=== PATIENT | female | born 1960 | race Caucasian/White ===

== ENCOUNTER → 2017-05-24 | Outpatient (CLI) | payer OTHER ==
--- NOTE | 2017-05-28 08:31 | MM ---
Reason for exam: screening (asymptomatic). Last mammogram was performed 1 year ago. History: Patient is postmenopausal and has history of other cancer at age 54. Physical Findings: A clinical breast exam by your physician is recommended on an annual basis and results should be correlated with mammographic findings. MG Screening Mammo w CAD Bilateral CC and MLO view(s) were taken. Prior study comparison: May 23, 2016, bilateral MG diagnostic mammo w CAD PATITO. May 05, 2015, right breast MG work up mamm w CAD RT. The breast tissue is heterogeneously dense. This may lower the sensitivity of mammography. Finding: There are typically benign coarse, diffuse/scattered calcifications in both breasts. No significant changes in finding since May 23, 2016 and May 05, 2015. ASSESSMENT: Benign, BI-RAD 2 RECOMMENDATION: Routine screening mammogram of both breasts in 1 year.
== END | disposition home or self-care (01) ==
LOC: RADMAMWWP 10:05
PROVIDERS: ATTEND Obstetrics & Gynecology
DX: Z12.31 Encounter for screening mammogram for malignant neoplasm of breast (principal)

== ENCOUNTER → 2018-08-21 | Outpatient (CLI) | payer OTHER ==
--- NOTE | 2018-08-24 12:55 | MM ---
Reason for exam: screening (asymptomatic). Last mammogram was performed 1 year and 3 months ago. History: Patient is postmenopausal and has history of other cancer at age 54. MG Screening Mammo w CAD Bilateral CC, MLO, and XCCL view(s) were taken. Prior study comparison: May 24, 2017, bilateral MG screening mammo w CAD. May 23, 2016, bilateral MG diagnostic mammo w CAD PATITO. There are scattered fibroglandular densities. Scattered benign oil cysts and vascular calcifications, increasing on the left. No significant changes when compared with prior studies. ASSESSMENT: Benign, BI-RAD 2 RECOMMENDATION: Routine screening mammogram of both breasts in 1 year.
== END ==
LOC: RADMAMWWP 08:59
PROVIDERS: ATTEND Obstetrics & Gynecology
DX: Z12.31 Encounter for screening mammogram for malignant neoplasm of breast (principal)
CPT/HCPCS: 77067

== ENCOUNTER → 2019-10-20 | Outpatient (CLI) | payer BC ==
--- NOTE | 2019-10-20 20:07 | BD ---
EXAMINATION TYPE: Axial Bone Density DATE OF EXAM: 10/20/2019 COMPARISON: 04.29.2015 DEXA bone scan. CLINICAL HISTORY: 59 YR OLD FEMALE....ICD-10 CODE: M85.9 DISORDER OF BONE DENSITY Height: 63 Weight: 189 FRAX RISK QUESTIONS: Secondary Osteoporosis: YES 1. Type 1 Diabetes: YES Current Tobacco Use: YES RISK FACTORS HISTORY OF: Postmenopausal woman: YES, ABOUT AGE 52 YRS OLD Lost more than 2 inches in height since high school: YES Hyperparathyroidism: NO Adrenal Insufficiency: NO MEDICATIONS: Additional Medications: CALCIUM, VIT D, BP MEDS, ANTIDEPRESSANTS IN THE PAST, INSULIN AND ORAL DIABE TIC MEDS, REFLUX MEDS, STATIN FOR CHOLESTEROL, Additional History: DIABETIC, REFLUX, CHOLESTEROL, HYPERTENSION EXAM MEASUREMENTS: Bone mineral densitometry was performed using the [employer]. Bone mineral density as measured about the Lumbar spine is: ----- L1-L4(G/cm2): 1.223 T Score Values are as follows: ----- L1: 0.3 ----- L2: 0.2 ----- L3: 0.5 ----- L4: 0.2 ----- L1-L4: 0.4 Bone mineral density has: Increased 6.9% since study of: 04.29.2015 Bone mineral density about the R hip (g/cm2): 0.972 Bone mineral density about the L hip (g/cm2): 1.062 T Score values are as follows: -----R Neck: -0.9 -----L Neck: -0.4 -----R Total: -0.3 -----L Total: 0.4 Bone mineral density has: Decreased -1.8% since study of: 04.29.2015 FRAX%s: THERE IS A 6.4% CHANCE FOR A MAJOR OSTEOPOROTIC FX AND A 0.5% FOR HIP....PROBABILITY FOR FX IN 10 YRS TIME IMPRESSION: Normal (Values between +1 and -1 indicate normal bone mass). Consider repeating this study in 5 year s or sooner if there is some new clinical indication. NOTE: T-SCORE=SD OF THE YOUNG ADULT MEAN.
--- NOTE | 2019-10-21 10:10 | MM ---
Reason for exam: screening (asymptomatic). Last mammogram was performed 1 year and 2 months ago. History: Patient is postmenopausal and has history of other cancer at age 54. Physical Findings: A clinical breast exam by your physician is recommended on an annual basis and results should be correlated with mammographic findings. MG Screening Mammo w CAD Bilateral CC and MLO view(s) were taken. Prior study comparison: August 21, 2018, bilateral MG screening mammo w CAD. May 24, 2017, bilateral MG screening mammo w CAD. The breast tissue is heterogeneously dense. This may lower the sensitivity of mammography. There are benign appearing round vascular calcifications bilaterally. There is chronic nodularity in the right breast. There is no discrete abnormality. ASSESSMENT: Benign, BI-RAD 2 RECOMMENDATION: Routine screening mammogram of both breasts in 1 year.
== END | disposition home or self-care (01) ==
LOC: RADMAMWWP 14:51
PROVIDERS: ATTEND Internal Medicine
DX: Z12.31 Encounter for screening mammogram for malignant neoplasm of breast (principal); M85.9 Disorder of bone density and structure, unspecified
CPT/HCPCS: 77067; 77080

== ENCOUNTER → 2020-08-17 | Outpatient (CLI) | payer BC ==
--- NOTE | 2020-08-17 16:07 | US ---
EXAMINATION TYPE: US carotid duplex BILAT DATE OF EXAM: 08/17/2020 COMPARISON: NONE CLINICAL HISTORY: 59-year-old female I65.23 Occlusion and stenosis of bilateral carotid. Pt states h/ o diabetes, vertigo TECHNIQUE: Carotid duplex ultrasound examination. Indirect Doppler criteria was utilized. FINDINGS: EXAM MEASUREMENTS: RIGHT: Peak Systolic Velocity (PSV) cm/sec ----- Right CCA: 79.9 ----- Right ICA: 136.6 ----- Right ECA: 178.6 ICA/CCA ratio: 1.7 RIGHT: End Diastole cm/sec ----- Right CCA: 22.3 ----- Right ICA: 47.8 ----- Right ECA: 13.0 LEFT: Peak Systolic Velocity (PSV) cm/sec ----- Left CCA: 74.3 ----- Left ICA: 118.9 ----- Left ECA: 324.7 ICA/CCA ratio: 1.6 LEFT: End Diastole cm/sec ----- Left CCA: 20.4 ----- Left ICA: 39.7 ----- Left ECA: 48.9 VERTEBRALS (direction of flow): Right Vertebral: Antegrade Left Vertebral: Antegrade Rhythm: Normal Construction Safety Consultant notes:Mildly elevated velocities right ICA and ECA/ Significant elevated velocities le ft ECA IMPRESSION: 1. Mildly elevated velocities within the proximal right ICA could reflect a moderate, 50-69%, stenosi s. 2. Significantly elevated velocities in the left ECA suggests a possible severe stenosis. No hemodyna mically significant ICA stenosis on the left. Criteria for Assigning % of Stenosis / Diameter reduction (Estimation based on the indirect measurements of the internal carotid artery velocities (ICA PSV). 1. Normal (no stenosis)=ICA PSV < 125 cm/s: ratio < 2.0: ICA EDV<40 cm/s. 2. Less than 50% stenosis=ICA PSV < 125 cm/s: ratio < 2.0: ICA EDV<40 cm/s. 3. 50 to 69% stenosis=ICA PSV of 125 to 230 cm/s: ration 2.0 ? 4.0: ICA EDV 40-100 cm/s. 4. Greater than 70% stenosis to near occlusion= ICA PSV > 230 cm/s: ratio > 4.0: ICA EDV > 100 cm/s. 5. Near occlusion= ICA PSV velocities may be low or undetectable: variable ratio and ICA EDV. 6. Total occlusion=unable to detect flow.
== END | disposition home or self-care (01) ==
LOC: RADUSWWP 15:24
PROVIDERS: ATTEND Internal Medicine
DX: I65.21 Occlusion and stenosis of right carotid artery (principal); R93.89 Abnormal findings on diagnostic imaging of other specified body structures
CPT/HCPCS: 93880

== ENCOUNTER → 2020-09-06 | Outpatient (CLI) | payer BC ==
--- NOTE | 2020-09-07 05:18 | CT ---
EXAMINATION TYPE: CT angio neck DATE OF EXAM: 09/06/2020 COMPARISON: None HISTORY: Carotid stenosis. CT DLP: 376.6 mGycm Automated exposure control for dose reduction was used. CONTRAST: Performed with IV Contrast, patient injected with 65ml mL of Isovue 370. Images were obtained from the aortic arch to the [place] with IV contrast and 3-D post proce ssed images. There is normal branching pattern of the great vessels on the aortic arch. There is bilateral arteria l flow in the subclavian arteries. There is no mediastinal adenopathy. There is arterial flow in the common internal and external carotid arteries bilaterally. There is some mild plaque formation at the carotid artery bifurcations and less than 20% stenosis. There is no evidence of carotid or vertebral artery aneurysm or dissection. There is arterial flow in both vertebral arteries. There is arterial flow in the vertebrobasilar artery system. IMPRESSION: There is some mild plaque formation and less than 20% stenosis at the origins of both internal caroti d arteries. No evidence of hemodynamic stenosis.
== END | disposition home or self-care (01) ==
LOC: RADCTMAIN 16:52
PROVIDERS: ATTEND Internal Medicine
DX: I65.23 Occlusion and stenosis of bilateral carotid arteries (principal)
CPT/HCPCS: 82565; 84520; 70498; 36415; Q9967

== ENCOUNTER → 2020-12-23 | Outpatient (CLI) | payer BC ==
--- NOTE | 2020-12-23 15:32 | US ---
EXAMINATION TYPE: US kidneys/renal and bladder DATE OF EXAM: 12/23/2020 COMPARISON: 11/08/2011 CLINICAL HISTORY: N18.31 Chronic Kidney Disease stage 3a. Back pain EXAM MEASUREMENTS: Right Kidney: 9.2 x 5.1 x 4.3 cm Left Kidney: 10.1 x 5.2 x 5.5 cm Right Kidney: No hydronephrosis or renal calculi seen Left Kidney: No hydronephrosis or renal calculi seen Bladder: wnl Bilateral Jets seen: no IMPRESSION: No hydronephrosis or renal calculi. Ureteral jets are not visualized.
== END | disposition home or self-care (01) ==
LOC: RADUSWWP 09:58
PROVIDERS: ATTEND Internal Medicine
DX: N18.31 Chronic kidney disease, stage 3a (principal)
CPT/HCPCS: 76770

== ENCOUNTER → 2021-10-07 | Outpatient (CLI) | payer BC ==
--- NOTE | 2021-10-07 10:33 | P.STRESS ---
- Stress Test Note Stress Test Results/Findings: Exam Performed: NM stress cardiolite complete Exam Date: 10/07/21 Reason for Exam: CAD Height: 5 ft 4 in Weight: 185 kg Protocol: CARDIOLITE NITISH Stage: 2 Duration of Exercise: 6:25 Resting Heart Rate: 80 Resting Blood Pressure: 141/65 Maximum Achieved Heart Rate: 146 Maximum Achieved Blood Pressure: 168/51 85% PMHR: 134 100% PMHR: 158 METS: 7.1 Technologist Comment: Stress Test Results/Findings: This is a 61-year-old female with history of hypertension, diabetes, smoking history and family history being evaluated for cardiac status. Stress data: Baseline EKG showed sinus rhythm with normal ME interval and QRS duration. Blood pressure at rest is 140/65 with pulse rate of 80. Patient walked on the Nitish protocol for 6 minutes and 25 seconds achieving a maximal rate of 146 with a blood pressure 168/51. EKGs taken during and after exercise showed mild J-point depression with upsloping ST segments. Patient did not experience any chest pain. No arrhythmias were noted. Final impression: #1. Borderline ST-T abnormalities which are not quite diagnostic for ischemia #2. Patient did not experience any chest pain. 3. No arrhythmias were noted. #4. Report on the nuclear images, which will be more pertinent, will begin with the radiologist
--- NOTE | 2021-10-07 11:16 | NM ---
EXAMINATION TYPE: NM stress cardiolite complete DATE OF EXAM: 10/07/2021 COMPARISON: NONE HISTORY: precordial chest pain and abnormal EKG. TECHNIQUE: After the intravenous administration of 9.6 mCi Tc 99m Sestamibi - Rest images obtained 5 0 minutes post injection. The patient exercised using a NITISH protocol and 1 minute prior to peak e xercise was injected with 24.1 mCi Tc 99m Sestamibi - Stress images obtained 10 minutes post injectio n. FINDINGS: Targeted heart rate was achieved during performance of the study. Review of stress and rest SPECT jeannine ges demonstrates no distinct perfusion abnormality. Gated analysis shows normal wall motion with an estimated left ventricular ejection fraction of 77 %. IMPRESSION: No scintigraphic evidence for reversible ischemia
== END | disposition home or self-care (01) ==
LOC: RADNMMAIN 07:45
PROVIDERS: ATTEND Internal Medicine
DX: R94.39 Abnormal result of other cardiovascular function study (principal)
CPT/HCPCS: 93017; 78452; A9500

== ENCOUNTER → 2022-07-13 | Outpatient (CLI) | payer BC ==
--- NOTE | 2022-07-13 08:31 | CTL ---
EXAMINATION TYPE: CT Low Dose Lung DATE OF EXAM ORDERED: 07/13/2022 COMPARISON: None HISTORY: . Low Dose CT Lung Screening CT DLP: 133.[address] CTDI: 3.80 mGy IV CONTRAST USED: None. SCREENING VISIT: First visit COMPARISON: None. TECHNIQUE: Low dose computed tomography scan was performed through the chest at 1 millimeter thick se ctions and reconstructed images in the coronal plane at [address] DIAGNOSTIC QUALITY: Satisfactory FINDINGS: LUNG NODULES: Solid nodule measuring 5.5 mm right apical region image 35. Calcified granuloma right u pper lobe measuring 1.2 cm image 88. LUNGS: COPD: Severity: Mild Fibrosis: Severity:None Lymph nodes: None Other findings: None RIGHT PLEURAL SPACE: Effusion: None Calcification: None Thickening: None Pneumothorax: None LEFT PLEURAL SPACE: Effusion: None Calcification: None Thickening: None Pneumothorax: None HEART: Heart Size: Mildly enlarged. Dense mitral annular calcifications noted. Coronary calcification: Mild Pericardial effusion: None OTHER FINDINGS: Upper abdomen: No significant abnormality Bony thorax: Degenerative changes Supraclavicular region: No significant abnormalityOther: No significant abnormalityI IMPRESSION: Right upper lobe nodularity is noted. FOLLOW UP CT CHEST RECOMMENDATION: Follow-up screening in one year CT LUNG RAD: LUNG RAD CATEGORY 2 benign appearance or behavior
== END | disposition home or self-care (01) ==
LOC: RADCTMAIN 07:51
PROVIDERS: ATTEND Internal Medicine
DX: Z12.31 Encounter for screening mammogram for malignant neoplasm of breast (principal); R91.8 Other nonspecific abnormal finding of lung field; Z87.891 Personal history of nicotine dependence
CPT/HCPCS: 71271

== ENCOUNTER → 2023-08-17 | Outpatient (CLI) | payer BC ==
--- NOTE | 2023-08-17 16:17 | CTL ---
EXAMINATION TYPE: CT Low Dose Lung DATE OF EXAM ORDERED: 08/17/2023 HISTORY: Lung cancer screening CT DLP: 100.[address] CTDI: 2.4 mGy Automated exposure control for dose reduction was used. COMPARISON: 07/13/2022 TECHNIQUE: Low dose computed tomography scan was performed through the chest at 1 mm thick sections a nd reconstructed images in multiple planes at 1 mm and [address] DIAGNOSTIC QUALITY: Satisfactory FINDINGS: The 2 right upper lobe pulmonary nodules are again seen and are stable. There is a stable subpleural parenchymal nodule in the left lingula as well. No new or suspicious lung mass or nodule is seen. The great vessels the chest are normal is no mediastinal, hilar or axillary adenopathy. There is no pleural effusion, pleural thickening or pneumothorax. There is scanning through the upper abdomen reveals no gross abnormality. No focal destructive osseou s lesions are seen. IMPRESSION: 1. Lung RADS category 2 benign findings as described above. Continue routine screening at yearly inte rvals. 2. No acute cardiopulmonary disease.
== END | disposition home or self-care (01) ==
LOC: RADCTMAIN 15:05
PROVIDERS: ATTEND Internal Medicine
DX: Z12.2 Encounter for screening for malignant neoplasm of respiratory organs (principal); R91.1 Solitary pulmonary nodule; F17.210 Nicotine dependence, cigarettes, uncomplicated
CPT/HCPCS: 71271

== ENCOUNTER → 2023-12-04 | Outpatient (CLI) | payer BC ==
--- NOTE | 2023-12-05 07:08 | CA ---
Transthoracic Echo Report Name: Carmella Villegas Age: 63 Gender: F : 1960 Exam Date: 12/04/2023 14:19 Exam Location: [facility] Ht (in): 64 Wt (lb): 182 Ordering Physician: Miguel Ko MD Attending/Referring Phys: Miguel Ko MD Senior Care Specialist Diane Levy RDCS Procedure CPT: Indications: I34.0 NONRHEUMATIC MITRAL (VALVE) INSUFFICIENCY Cardiac Hx: Technical Quality: Good Contrast 1: Total Dose (mL): Contrast 2: Total Dose (mL): MEASUREMENTS (Male / Female) Normal Values 2D ECHO LV Diastolic Diameter PLAX 4.7 cm 4.2 - 5.9 / 3.9 - 5.3 cm LV Systolic Diameter PLAX 2.7 cm IVS Diastolic Thickness 1.0 cm 0.6 - 1.0 / 0.6 - 0.9 cm LVPW Diastolic Thickness 1.1 cm 0.6 - 1.0 / 0.6 - 0.9 cm LV Relative Wall Thickness 0.5 RV Internal Dim ED PLAX 3.1 cm LA Systolic Diameter LX 4.3 cm 3.0 - 4.0 / 2.7 - 3.8 cm LV Diastolic Volume MOD 4C 86.4 cm??? LV Systolic Volume MOD 4C 41.4 cm??? LV Ejection Fraction MOD 4C 52.1 % LV Cardiac Index MOD 4C 1471.6 cm???/min???m??? LV Diastolic Length 4C 7.6 cm LV Systolic Length 4C 6.0 cm LV Diastolic Volume MOD 2C 48.2 cm??? LV Systolic Volume MOD 2C 14.1 cm??? LV Ejection Fraction MOD 2C 70.7 % LV Cardiac Index MOD 2C 1113.4 cm???/min???m??? LV Diastolic Length 2C 6.0 cm LV Systolic Length 2C 4.9 cm LA Volume 66.2 cm??? 18 - 58 / 22 - 52 cm??? LA Volume Index 33.8 cm???/m??? 16 - 28 cm???/m??? M-MODE Aortic Root Diameter MM 3.1 cm MV E Point Septal Separation 0.8 cm AV Cusp Separation MM 1.9 cm DOPPLER AV Peak Velocity 137.1 cm/s AV Peak Gradient 7.5 mmHg MV Peak Velocity 167.2 cm/s MV Peak Gradient 11.2 mmHg MV Mean Velocity 87.0 cm/s MV Mean Gradient 3.8 mmHg MV Velocity Time Integral 58.6 cm MV Area PHT 1.9 cm??? Mitral E Point Velocity 114.9 cm/s Mitral A Point Velocity 135.4 cm/s Mitral E to A Ratio 0.8 MV Deceleration Time 405.3 ms FINDINGS Left Ventricle Left ventricular ejection fraction is estimated at 60-65 %. Left ventricular cavity size normal. Mildly increased septal wall thickness. Mildly increased posterior wall thickness. No obvious regional wall motion abnormalities. Right Ventricle Normal right ventricular size and function. Unable to estimate the right ventricular systolic pressure. Right Atrium Normal right atrial size. Left Atrium Mildly increased left atrial diameter. Mildly increased left atrial volume. Mildly increased left atrial area. Mitral Valve Moderate thickening/calcification of the anterior mitral valve leaflet. Moderate thickening/calcification of the posterior mitral valve leaflet. Moderate mitral annular calcification. Mild mitral regurgitation. Minimal mitral stenosis. Aortic Valve Trileaflet aortic valve. Aortic valve sclerosis. No aortic valve stenosis or regurgitation. Tricuspid Valve Structurally normal tricuspid valve. No tricuspid stenosis, regurgitation or prolapse. Pulmonic Valve Structurally normal pulmonic valve. Trace pulmonic regurgitation. Pericardium No pericardial effusion. No pleural effusion. Aorta Normal size aortic root and proximal ascending aorta. CONCLUSIONS Normal LV systolic function Moderate mitral annular calcification and mitral leaflet thickening with mild mitral stenosis Aortic sclerosis with no stenosis or regurgitation No pericardial effusion Previewed by: Dr. Bishop Hicks MD (Electronically Signed) Final Date: 05 Dec 2023 07:07
== END | disposition home or self-care (01) ==
LOC: RADECHMAIN 14:02
PROVIDERS: ATTEND Internal Medicine
DX: I34.81 Nonrheumatic mitral (valve) annulus calcification (principal); I70.0 Atherosclerosis of aorta
CPT/HCPCS: 93306

== ENCOUNTER → 2024-03-18 | Outpatient (CLI) | payer BC | END | disposition home or self-care (01) | LOC: LABPRL 09:00 | PROVIDERS: ATTEND Internal Medicine | CPT/HCPCS: 80053; 80061; 82043; 82306; 82570; 83036; 84443; 85025 ==

== ENCOUNTER → 2024-06-26 | Outpatient (CLI) | payer BC ==
--- NOTE | 2024-06-27 09:22 | MM ---
Reason for Exam: Screening (asymptomatic). Last mammogram was performed 4 year(s) and 8 month(s) ago. Patient History: Menarche at age 9. First Full-Term at age 21. Postmenopausal. Other cancer, age 54. Risk Values: Giovanna 5 year model risk: 1.6%. NCI Lifetime model risk: 6.4%. Prior Study Comparison: 05/24/2017 Bilateral Screening Mammogram, [facility]. 08/21/2018 Bilateral Screening Mammogram, [facility]. 10/20/2019 Bilateral Screening Mammogram, [facility]. Tissue Density: There are scattered areas of fibroglandular density. Findings: Analyzed By CAD. Right breast: There is no suspicious group of microcalcifications or new suspicious mass. Benign-appearing calcifications right breast. Left breast: There is no suspicious group of microcalcifications or new suspicious mass. Benign-appearing calcifications left breast. Overall Assessment: Benign, BI-RAD 2 Management: Screening Mammogram of both breasts in [address] [facility] will attempt to contact patient to return for supplemental views and ultrasound if indicated. Patient should continue monthly self-breast exams. A clinical breast exam by your physician is recommended on an annual basis. This exam should not preclude additional follow-up of suspicious palpable abnormalities. Note on Giovanna scores and lifetime risk: 1. A Giovanna score greater than 3% is considered moderate risk. If this is the case, consider specialist referral to assess eligibility for a risk reducing agent. 2. If overall lifetime risk for the development of breast cancer is 20% or higher, the patient may qualify for future screening with alternating mammogram and breast MRI. [facility], , 06/27/2024 9:18 AM. Electronically signed and approved by: Surinder Vega DO
== END | disposition home or self-care (01) ==
LOC: RADMAMWWP 15:29
PROVIDERS: ATTEND Internal Medicine
DX: Z12.31 Encounter for screening mammogram for malignant neoplasm of breast (principal); R92.323 Mammographic fibroglandular density, bilateral breasts; Z78.0 Asymptomatic menopausal state
CPT/HCPCS: 77063; 77067

== ENCOUNTER 2024-08-21 16:28 | Emergency (ER) | payer BC ==
[2024-08-21 17:10] VITALS: TEMP 97.7
--- NOTE | 2024-08-21 18:12 | ED ---
Dizziness HPI - General Source: patient, family Mode of arrival: ambulatory Limitations: no limitations - History of Present Illness MD Complaint: dizziness, lightheadedness Time: 12:00 Timing: sudden onset <Maninder Flores - Last Filed: 08/21/24 18:09> - General Source: patient, family, RN notes reviewed <Erica Agustin - Last Filed: 08/21/24 22:09> - General Chief Complaint: Dizziness Stated Complaint: dizzy Time Seen by Provider: 08/21/24 16:42 - History of Present Illness Initial Comments: Quick note: This is a 63-year-old female with history of COPD PD, CHF, hypertension and vertigo presenting with dizziness/lightheadedness since noon today. Patient endorses associated chills and "spaciness" as well. Denies sensation of room spinning with head movement. Denies chest pain, palpitations, dyspnea/SOB, abdominal pain, N/V/D. (Maninder Flores) 63-year-old female with history of vertigo, COPD, type 2 diabetes, and hyper tension presenting for dizziness x 7 hours. States at noon today she was walking around when she began to this that she was going to pass out. States the sensation went away when she sat down. States this has happened 4 times over the course of the day. Also reports feeling "off". Also endorses bilateral changes in her vision that feel like "waves". Denies chest pain, shortness of breath, palpitations. Denies blood thinners. (Erica Agustin) - Related Data Allergies Allergy/AdvReac Type Severity Reaction Status Date / Time Penicillins Allergy Rash/Hives Verified 08/21/24 17:10 Review of Systems ROS Other: All systems not noted in ROS Statement are negative. <Maninder Flores - Last Filed: 08/21/24 18:09> ROS Other: All systems not noted in ROS Statement are negative. <Erica Agustin - Last Filed: 08/21/24 22:09> ROS Statement: Those systems with pertinent positive or pertinent negative responses have been documented in the HPI. Past Medical History Past Medical History: COPD, Diabetes Mellitus, Hypertension Additional Past Medical History / Comment(s): vertigo History of Any Multi-Drug Resistant Organisms: None Reported Past Surgical History: Tubal Ligation Past Psychological History: No Psychological Hx Reported Smoking Status: Never smoker Past Alcohol Use History: None Reported Past Drug Use History: None Reported <Maninder Flores - Last Filed: 08/21/24 18:09> General Exam Limitations: no limitations <Maninder Flores - Last Filed: 08/21/24 18:09> General appearance: alert, in no apparent distress Head exam: Present: atraumatic, normocephalic, normal inspection Eye exam: Present: normal appearance, PERRL, EOMI. Absent: scleral icterus, conjunctival injection, periorbital swelling ENT exam: Present: normal exam, mucous membranes moist Neck exam: Present: normal inspection. Absent: tenderness, meningismus, lymphadenopathy Respiratory exam: Present: normal lung sounds bilaterally. Absent: respiratory distress, wheezes, rales, rhonchi, stridor Cardiovascular Exam: Present: regular rate, normal rhythm, normal heart sounds. Absent: systolic murmur, diastolic murmur, rubs, gallop, clicks Neurological exam: Present: alert, oriented X3, CN II-XII intact Psychiatric exam: Present: normal affect, normal mood Skin exam: Present: warm, dry, intact, normal color. Absent: rash <Erica Agustin - Last Filed: 08/21/24 22:09> - General Exam Comments Initial Comments: Visual Physical Exam Vital signs reviewed General: Well-appearing, nontoxic, no acute distress. Patient seated in wheelchair Head: Normocephalic, atraumatic Eyes: PERRLA, EOMI ENT: Airway patent Chest: Nonlabored breathing Skin: No visual rash, normal skin tone Neuro: Alert and oriented 3. [place] stroke negative for arm drift test and equal smile. Patient unable to repeat phrase back appropriately Musculoskeletal: No gross abnormalities (Maninder Flores) Course Vital Signs 08/21/24 08/21/24 08/21/24 17:05 20:53 21:53 Temperature 97.7 F Pulse Rate 74 72 73 Respiratory 19 18 18 Rate Blood Pressure 155/68 137/59 149/63 O2 Sat by Pulse 94 L 97 99 Oximetry EKG Findings - EKG Results: EKG: interpreted by ERMD (EKG reveals normal sinus rhythm with no ST changes. Ventricular rate 76 bpm, LA interval 158, QRS duration 87, QT/QTc 395/425) <Erica Agustin - Last Filed: 08/21/24 22:09> Medical Decision Making <Maninder Flores - Last Filed: 08/21/24 18:09> - Lab Data Result diagrams: 08/21/24 18:39 08/21/24 19:35 <Erica Agustin - Last Filed: 08/21/24 22:09> - Medical Decision Making I completed the quick note portion of this chart signed CHELSI Odom (Maninder Flores) Was pt. sent in by a medical professional or institution ([facility], AUTOMOTIVE SERVICE TECHNICIAN, urgent care, hospital, or shelter...) When possible be specific @ -No Did you speak to anyone other than the patient for history (EMS, parent, family, police, friend...)? What history was obtained from this source @ -No Did you review nursing and triage notes (agree or disagree)? Why? @ -I reviewed and agree with nursing and triage notes Were old charts reviewed (outside hosp., previous admission, EMS record, old EKG, old radiological studies, urgent care reports/EKG's, shelter records)? Report findings @ -No old charts were reviewed Differential Diagnosis (chest pain, altered mental status, abdominal pain women, abdominal pain men, vaginal bleeding, weakness, fever, dyspnea, syncope, headache, dizziness, GI bleed, back pain, seizure, CVA, palpatations, mental health, musculoskeletal)? @ -Differential Dizziness: Benign paroxysmal positional Vertigo, Meniere's disease, otitis media, acoustic neuroma, vertebrobasilar insufficiency, cerebellar stroke, encephalitis, hypovolemic, arrhythmia, coronary artery syndrome, anemia, this is not meant to be an all-inclusive list EKG interpreted by me (3pts min.). @ -As above X-rays interpreted by me (1pt min.). @ -Chest x-ray reveals fullness in the right perihilar region consistent with acute bronchitis CT interpreted by me (1pt min.). @ -CT brain reveals hypertrophic colloid cyst within midline, no hydronephrosis, CT angio brain and C-spine reveals no flow-limiting bilateral carotid bifurcati ons and normal [place] U/S interpreted by me (1pt. min.). @ -None done What testing was considered but not performed or refused? (CT, X-rays, U/S, labs)? Why? @ -None What meds were considered but not given or refused? Why? @ -None Did you discuss the management of the patient with other professionals (professionals i.e. , [facility], AUTOMOTIVE SERVICE TECHNICIAN, lab, RT, psych nurse, high school social studies teacher, vending stand supervisor, teacher, community services officer, bilingual patient support caseworker)? Give summary @ -No Was smoking cessation discussed for >3mins.? @ -No Was critical care preformed (if so, how long)? @ -No Were there social determinants of health that impacted care today? How? (Homelessness, low income, unemployed, alcoholism, drug addiction, transpor tation, low edu. Level, literacy, decrease access to med. care, residential, rehab)? @ -No Was there de-escalation of care discussed even if they declined (Discuss DNR or withdrawal of care, Hospice)? DNR status @ -No What co-morbidities impacted this encounter? (DM, HTN, Smoking, COPD, CAD, Cancer, CVA, ARF, Chemo, Hep., AIDS, mental health diagnosis, sleep apnea, morbid obesity)? @ -None Was patient admitted / discharged? Hospital course, mention meds given and route, prescriptions, significant lab abnormalities, going to OR and other pertinent info. @ -Discharge. This is a 63-year-old female with history of vertigo presenting for dizziness. Vital signs within acceptable limits. Neuro examination unremarkable. Patient was provided with IV fluids and meclizine. EKG reveals normal sinus rhythm with no ST changes. Lab work remarkable for mild leukocytosis 13.6, BUN 25, and glucose 242. Urinalysis reveals trace glucose. Chest x-ray reveals fullness in the right perihilar region likely acute bronchitis. CT brain reveals hypertrophic colloid cyst within midline, no hydronephrosis. Results discussed with patient. Upon reevaluation, patient reports significant improvement of symptoms and would like to be discharged. I believe this is reasonable as there is no emergent etiology causing symptoms today. Appropriate return precautions and follow-up care discussed. Case was discussed with my ED attending Dr. Mejia Undiagnosed new problem with uncertain prognosis? @ -No Drug Therapy requiring intensive monitoring for toxicity (Heparin, Nitro, Insulin, Cardizem)? @ -No Were any procedures done? @ -No Diagnosis/symptom? @ -Colloid cyst of brain, dizziness Acute, or Chronic, or Acute on Chronic? @ -Acute Uncomplicated (without systemic symptoms) or Complicated (systemic symptoms)? @ -Uncomplicated Side effects of treatment? @ -No Exacerbation, Progression, or Severe Exacerbation? @ -No Poses a threat to life or bodily function? How? (Chest pain, [place], [place], pneumonia, PE, COPD, DKA, ARF, appy, cholecystitis, CVA, Diverticulitis, Homicidal, Suicidal, threat to staff... and all critical care pts) @ -Not at this time (Erica Agustin) - Lab Data Lab Results 08/21/24 08/21/24 08/21/24 Range/Units 18:39 18:39 18:46 WBC 13.6 H (3.8-10.6) k/uL RBC 4.17 (3.80-5.40) m/uL Hgb 12.7 (11.4-16.0) gm/dL Hct 38.0 (34.0-46.0) % MCV 91.0 (80.0-100.0) fL MCH 30.4 (25.0-35.0) pg MCHC 33.4 (31.0-37.0) g/dL RDW 12.5 (11.5-15.5) % Plt Count 175 (150-450) k/uL MPV 8.8 Neutrophils % 70 % Lymphocytes % 20 % Monocytes % 5 % Eosinophils % 3 % Basophils % 0 % Neutrophils # 9.5 H (1.3-7.7) k/uL Lymphocytes # 2.8 (1.0-4.8) k/uL Monocytes # 0.7 (0-1.0) k/uL Eosinophils # 0.4 (0-0.7) k/uL Basophils # 0.0 (0-0.2) k/uL Sodium (137-145) mmol/L Potassium (3.5-5.1) mmol/L Chloride (98-107) mmol/L Carbon Dioxide (22-30) mmol/L Anion Gap mmol/L BUN (7-17) mg/dL Creatinine (0.52-1.04) mg/dL Est GFR (CKD-EPI)AfAm (>60 ml/min/1.73 sqM) Est GFR (CKD-EPI)NonAf (>60 ml/min/1.73 sqM) Glucose (74-99) mg/dL POC Glucose (mg/dL) (70-110) mg/dL POC Glu Health Informatics Instructor ID Plasma Lactic Acid Vipul (0.7-2.0) mmol/L Calcium (8.4-10.2) mg/dL Total Bilirubin (0.2-1.3) mg/dL AST (14-36) U/L ALT (4-34) U/L Alkaline Phosphatase (38-126) U/L Troponin I <0.012 (0.000-0.034) ng/mL Total Protein (6.3-8.2) g/dL Albumin (3.5-5.0) g/dL Urine Color Colorless Urine Appearance Clear (Clear) Urine pH 5.0 (5.0-8.0) Ur Specific [place] 1.006 (1.001-1.035) Urine Protein Negative (Negative) Urine Glucose (UA) Trace H (Negative) Urine Ketones Negative (Negative) Urine Blood Negative (Negative) Urine Nitrite Negative (Negative) Urine Bilirubin Negative (Negative) Urine Urobilinogen <2.0 (<2.0) mg/dL Ur Leukocyte Esterase Negative (Negative) Influenza Type A (PCR) (Not Detectd) Influenza Type B (PCR) (Not Detectd) RSV (PCR) (Not Detectd) SARS-CoV-2 (PCR) (Not Detectd) 08/21/24 08/21/24 08/21/24 Range/Units 19:35 19:35 19:40 WBC (3.8-10.6) k/uL RBC (3.80-5.40) m/uL Hgb (11.4-16.0) gm/dL Hct (34.0-46.0) % MCV (80.0-100.0) fL MCH (25.0-35.0) pg MCHC (31.0-37.0) g/dL RDW (11.5-15.5) % Plt Count (150-450) k/uL MPV Neutrophils % % Lymphocytes % % Monocytes % % Eosinophils % % Basophils % % Neutrophils # (1.3-7.7) k/uL Lymphocytes # (1.0-4.8) k/uL Monocytes # (0-1.0) k/uL Eosinophils # (0-0.7) k/uL Basophils # (0-0.2) k/uL Sodium 135 L (137-145) mmol/L Potassium 4.9 (3.5-5.1) mmol/L Chloride 105 (98-107) mmol/L Carbon Dioxide 22 (22-30) mmol/L Anion Gap 8 mmol/L BUN 25 H (7-17) mg/dL Creatinine 0.99 (0.52-1.04) mg/dL Est GFR (CKD-EPI)AfAm 70 (>60 ml/min/1.73 sqM) Est GFR (CKD-EPI)NonAf 61 (>60 ml/min/1.73 sqM) Glucose 242 H (74-99) mg/dL POC Glucose (mg/dL) 257 H (70-110) mg/dL POC Glu Health Informatics Instructor ID Aj Romero Plasma Lactic Acid Vipul 1.2 (0.7-2.0) mmol/L Calcium 9.7 (8.4-10.2) mg/dL Total Bilirubin 0.4 (0.2-1.3) mg/dL AST 31 (14-36) U/L ALT 30 (4-34) U/L Alkaline Phosphatase 95 (38-126) U/L Troponin I (0.000-0.034) ng/mL Total Protein 6.2 L (6.3-8.2) g/dL Albumin 3.9 (3.5-5.0) g/dL Urine Color Urine Appearance (Clear) Urine pH (5.0-8.0) Ur Specific [place] (1.001-1.035) Urine Protein (Negative) Urine Glucose (UA) (Negative) Urine Ketones (Negative) Urine Blood (Negative) Urine Nitrite (Negative) Urine Bilirubin (Negative) Urine Urobilinogen (<2.0) mg/dL Ur Leukocyte Esterase (Negative) Influenza Type A (PCR) (Not Detectd) Influenza Type B (PCR) (Not Detectd) RSV (PCR) (Not Detectd) SARS-CoV-2 (PCR) (Not Detectd) 08/21/24 Range/Units 20:05 WBC (3.8-10.6) k/uL RBC (3.80-5.40) m/uL Hgb (11.4-16.0) gm/dL Hct (34.0-46.0) % MCV (80.0-100.0) fL MCH (25.0-35.0) pg MCHC (31.0-37.0) g/dL RDW (11.5-15.5) % Plt Count (150-450) k/uL MPV Neutrophils % % Lymphocytes % % Monocytes % % Eosinophils % % Basophils % % Neutrophils # (1.3-7.7) k/uL Lymphocytes # (1.0-4.8) k/uL Monocytes # (0-1.0) k/uL Eosinophils # (0-0.7) k/uL Basophils # (0-0.2) k/uL Sodium (137-145) mmol/L Potassium (3.5-5.1) mmol/L Chloride (98-107) mmol/L Carbon Dioxide (22-30) mmol/L Anion Gap mmol/L BUN (7-17) mg/dL Creatinine (0.52-1.04) mg/dL Est GFR (CKD-EPI)AfAm (>60 ml/min/1.73 sqM) Est GFR (CKD-EPI)NonAf (>60 ml/min/1.73 sqM) Glucose (74-99) mg/dL POC Glucose (mg/dL) (70-110) mg/dL POC Glu Health Informatics Instructor ID Plasma Lactic Acid Vipul (0.7-2.0) mmol/L Calcium (8.4-10.2) mg/dL Total Bilirubin (0.2-1.3) mg/dL AST (14-36) U/L ALT (4-34) U/L Alkaline Phosphatase (38-126) U/L Troponin I (0.000-0.034) ng/mL Total Protein (6.3-8.2) g/dL Albumin (3.5-5.0) g/dL Urine Color Urine Appearance (Clear) Urine pH (5.0-8.0) Ur Specific [place] (1.001-1.035) Urine Protein (Negative) Urine Glucose (UA) (Negative) Urine Ketones (Negative) Urine Blood (Negative) Urine Nitrite (Negative) Urine Bilirubin (Negative) Urine Urobilinogen (<2.0) mg/dL Ur Leukocyte Esterase (Negative) Influenza Type A (PCR) Not Detected (Not Detectd) Influenza Type B (PCR) Not Detected (Not Detectd) RSV (PCR) Not Detected (Not Detectd) SARS-CoV-2 (PCR) Not Detected (Not Detectd) Disposition <Maninder Flores - Last Filed: 08/21/24 18:09> Is patient prescribed a controlled substance at d/c from ED?: No Time of Disposition: 21:46 <AgustinErica - Last Filed: 08/21/24 22:09> Clinical Impression: Colloid cyst of brain, Dizziness Disposition: HOME SELF-CARE Condition: Stable Additional Instructions: Follow-up with PCP as discussed. Please return to the Emergency Department if symptoms worsen or any other concerns. Referrals: Miguel Ko MD [Primary Care Provider] - 1-2 days
[2024-08-21 18:50] LABS: Basophils % (A) 0 %; Eosinophils # (A) 0.4 k/uL (0-0.7); Eosinophils % (A) 3 %; HGB 12.7 gm/dL (11.4-16.0); Lymphocytes # (A) 2.8 k/uL (1.0-4.8); Lymphocytes % (A) 20 %; MCH 30.4 pg (25.0-35.0); MCHC 33.4 g/dL (31.0-37.0); Mean Platelet Volume 8.8; Monocytes # (A) 0.7 k/uL (0-1.0); Monocytes % (A) 5 %; Neutrophils # (A) 9.5 k/uL (1.3-7.7); Neutrophils % (A) 70 %; Platelet Count 175 k/uL (150-450); RBC 4.17 m/uL (3.80-5.40); RDW 12.5 % (11.5-15.5); WBC 13.6 k/uL (3.8-10.6)
[2024-08-21] MEDS: MECLIZINE 12.5 MG TAB PO STA (19:19)
[2024-08-21 19:21] LABS: Appearance,Urine Clear (Clear); Bilirubin,Urine Negative (Negative); Blood,Urine Negative (Negative); Color,Urine Colorless; Glucose,Urine (UA) Trace (Negative); Ketones,Urine Negative (Negative); Leukocyte Esterase,Urine Negative (Negative); Nitrite,Urine Negative (Negative); Protein,Urine Negative (Negative); Specific Gravity,Urine 1.006 (1.001-1.035); Urobilinogen,Urine <2.0 mg/dL (<2.0)
[2024-08-21 19:41] LABS: Glucose,Whole Blood 257 mg/dL (70-110)
--- NOTE | 2024-08-21 20:00 | XR ---
EXAMINATION TYPE: XR chest 2V DATE OF EXAM: 08/21/2024 6:49 PM COMPARISON: CT 08/17/2023 CLINICAL INDICATION: Female, 63 years old with history of Dizzy, history of CHF, TECHNIQUE: XR chest 2V view(s) obtained. FINDINGS: The heart size is normal. The pulmonary vasculature is normal. There appears to be some mild increased lung markings in the right perihilar region. Corresponding fi nding is not identified on CT. IMPRESSION: 1. Fullness in the right perihilar region. Follow-up recommended consider acute bronchitis. Underlyin g abnormality not excludede [facility], , 08/21/2024 7:58 PM
[2024-08-21 20:11] LABS: ALT 30 U/L (4-34); African American GFR (CKD) 70 (>60 ml/min/1.73 sqM); Albumin 3.9 g/dL (3.5-5.0); Anion Gap 8 mmol/L; Blood Urea Nitrogen 25 mg/dL (7-17); Calcium 9.7 mg/dL (8.4-10.2); Carbon Dioxide 22 mmol/L (22-30); Chloride 105 mmol/L (98-107); Glucose 242 mg/dL (74-99); Non-African American GFR(CKD) 61 (>60 ml/min/1.73 sqM); Sodium 135 mmol/L (137-145); Total Bilirubin 0.4 mg/dL (0.2-1.3); Total Protein 6.2 g/dL (6.3-8.2)
[2024-08-21 20:23] LABS: Potassium 4.9 mmol/L (3.5-5.1)
[2024-08-21 20:24] LABS: AST 31 U/L (14-36); Alkaline Phosphatase 95 U/L (38-126)
[2024-08-21] MEDS: SODIUM CHLORIDE 0.9% 1,000 ML IV STA (20:26)
[2024-08-21 20:53] LABS: Influenza A Not Detected (Not Detectd); Influenza B Not Detected (Not Detectd); RSV Not Detected (Not Detectd)
[2024-08-21 20:54] VITALS: RESP 18
--- NOTE | 2024-08-21 21:02 | CT ---
EXAMINATION TYPE: CT brain wo con DATE OF EXAM: 08/21/2024 8:44 PM COMPARISON: None. CLINICAL INDICATION: Female, 63 years old with history of s/o Dizziness, lightheadedness, Dizziness, lightheadedness. TECHNIQUE: CT of the brain is performed utilizing 3 mm thick sections through the posterior fossa and 3 mm thick sections through the remaining calvarium. Study is performed within 24 hours of arrival to the hospital. Contrast used: mL of , (none if empty) CT DLP: Combined DLP of 1741.3 mGycm, Automated exposure control for dose reduction was used. FINDINGS: No abnormal hyperdensity is present to suggest an acute intracranial hemorrhage. There is a 0.5 cm hyperdense area within the region of the foramen of [place]. Colloid cyst is likely p resent. No contrast enhancement is evident through this region this measures approximately 80 Hounsfi eld units. No hydronephrosis is evident. No temporal horn dilatation is evident. Series 201 and image 30. Follow-up MRI is recommended. No acute infarcts are evident. Ventricles and sulci are appropriate for the patient age. Paranasal sinuses and mastoid air cells within the [id number] are clear. IMPRESSION: 1. Hypertrophic colloid cyst present within the midline. No hydronephrosis is evident. Follow-up MR I is recommended. [facility], , 08/21/2024 8:59 PM
--- NOTE | 2024-08-21 21:08 | CT ---
EXAMINATION TYPE: CT angio head neck DATE OF EXAM: 08/21/2024 8:51 PM COMPARISON: None. CLINICAL INDICATION: Female, 63 years old with history of s/o Dizziness, lightheadedness, Dizziness, lightheadedness. TECHNIQUE: CTA scan is performed with axial images are obtained, coronal and sagittal reformatted jeannine ges are reviewed. 3-D reconstructed images are created on an independent workstation and reviewed. S ource images are reviewed. NASCET criteria was used in interpretation of this exam? Contrast used:65 ml mL of Isovue 370 with IV Contrast, (none if empty) Oral contrast used: (none if empty) CT DLP: Combined DLP of 1741.3 mGycm, Automated exposure control for dose reduction was used. FINDINGS: Carotid/Vascular Structures: There is a 3 vessel arch. Common carotid arteries bifurcate into internal and external carotid arteries without significant nancy w limiting stenosis. There is approximately 39% narrowing of the origin of the left internal carotid artery. No significant narrowing of the right internal carotid artery is evident. Vertebral arteries are codominant. Internal carotid arteries and vertebral arteries are patent to the skull base. Cervical of [place]: Vertebral basilar system appears normal. Posterior cerebral vasculature is unrema rkable. Internal carotid arteries bifurcate normally into A1 and M1 segments. A2 segments are normal. The anterior communicating artery is not well visualized. The right posterior communicating artery is patent. The left posterior communicating artery is patent. IMPRESSION: 1. No flow-limiting stenosis bilateral carotid bifurcations. 2. Normal [place] [facility], , 08/21/2024 9:05 PM
[2024-08-21 21:54] VITALS: BP 149/63; PULSE 73
== END 2024-08-21 21:54 | disposition home or self-care (01) ==
LOC: EC 16:28
DX: G93.0 Cerebral cysts (principal); J20.9 Acute bronchitis, unspecified; R42 Dizziness and giddiness; Z88.0 Allergy status to penicillin
CPT/HCPCS: 36415; 93005; 80053; 83605; 84484; 85025; 81003; 87636; 71046; 70496; 70450; 70498; 99284; 96360; Q9967